=== PATIENT | female | born 1990 | race Caucasian/White ===

== ENCOUNTER → 2020-11-28 15:49 | Outpatient (BNVA) | payer OTHER, SELFPAY | PROVIDERS: Family Provider Nurse Practitioner; Referring Provider Nurse Practitioner; Visit Provider Podiatrist Foot & Ankle Surgery | DX: M79.672 Pain in left foot (principal); M79.671 Pain in right foot | CPT/HCPCS: 73610; 73630 ==

== ENCOUNTER → 2021-01-17 14:13 | Outpatient (BNVA) | payer OTHER, SELFPAY | PROVIDERS: Family Provider Nurse Practitioner; Visit Provider Surgery | DX: Z20.822 Contact with and (suspected) exposure to COVID-19 (principal); K64.8 Other hemorrhoids | CPT/HCPCS: 87635 ==

== ENCOUNTER 2021-01-20 09:44 | Day surgery (SDC) | payer OTHER, SELFPAY ==
[2021-01-20 10:15] LABS: OR HCG Qualitative Urine Negative (Negative)
[2021-01-20 10:17] VITALS: BP 130/81; PULSE 70; RESP 16; TEMP 36.7; O2SAT 97
--- NOTE | 2021-01-20 10:44 | SUR.PREOP ---
PATIENT WAS NOT MADE AWARE OF COLON PREP. DOCTOR EMMA WAS INFORMED AND TALKED WITH PATIENT .PLAN WAS MADE TO CANCEL TODAYS PROCEDURE AND RESCHEDULED FOR LATER DATE.
== END 2021-01-20 10:49 | disposition home or self-care (01) ==
LOC: OR 09:49
PROVIDERS: Anesthesiology; PCP Nurse Practitioner; Visit Provider Surgery
PROC: 0DJD8ZZ Inspection of Lower Intestinal Tract, Via Natural or Artificial Opening Endoscopic (ICD-10-PCS; CPT 45378; 2021-01-20 11:10)
DX: K64.8 Other hemorrhoids (principal); R19.4 Change in bowel habit; Z53.9 Procedure and treatment not carried out, unspecified reason
CPT/HCPCS: 81025; 84703

== ENCOUNTER → 2021-04-25 11:31 | Outpatient (BNVA) | payer OTHER, SELFPAY | PROVIDERS: PCP Nurse Practitioner; Visit Provider Surgery | DX: Z20.822 Contact with and (suspected) exposure to COVID-19 (principal) | CPT/HCPCS: 87635 ==

== ENCOUNTER 2021-04-29 09:54 | Day surgery (SDC) | payer OTHER, SELFPAY ==
[2021-04-28 10:10] VITALS: BMI 34.5
--- NOTE | 2021-04-29 10:09 | ANES.PREANE2 ---
Pre-Anesthetic Assessment Height/Weight: Height 1.83 m Weight 115.666 kg Preop Diagnosis: Bleeding hemorrhoid Operation Date: 04/29/21 11:30 Proposed Procedures p Colonoscopy(Not Applicable) - Fabián Yang MD Was Beta Kaur taken within 24 hours: N/A Was Clonidine taken within 24 hours: N/A Social No alcohol and No tobacco Exam alert, oriented x 3, clear to auscultation bilaterally and regular rate & rhythm Airway Submandibular: within normal limits Cervical ROM: within normal limits Mallampati: Class II Dentition: full History/ROS No significant history except as noted and No significant complaints Pulmonary None reported CV/HEM None reported Hx stones Hepatic None reported GI None reported Metabolic Thyroid Disease Musc/skel None reported Neuropsych None reported Anesthetic Plan ASA status: 2 Anesthesia: Anesthesia Evaluation and MAC Risk of > 500 ml blood loss (7ml/kg in children): No Medications/Allergies Home Medications Medication Instructions Recorded Confirmed Last Taken Type cetirizine 10 mg capsule (All Day 10 mg PO DAILY PRN 11/28/20 04/28/21 01/16/21 History Allergy (cetirizine)) citalopram 40 mg tablet 40 mg PO DAILY 11/28/20 04/28/21 01/19/21 History custom orthotics #1 ea 11/28/20 04/28/21 Unknown Rx fluoride (sodium) 1.1 % dental 1 applic DENTAL DAILY 11/28/20 04/28/21 01/19/21 History cream levothyroxine 25 mcg tablet 25 mcg PO DAILY 11/28/20 04/28/21 01/19/21 History (Synthroid) Allergies Allergy/AdvReac Type Severity Reaction Status Date / Time No Known Allergies Allergy Verified 04/28/21 10:08 [facility] Anesthesia Social History Smoking and tobacco status: never smoked Data Anesthesia Cardiac Studies: No Data to Display
[2021-04-29 10:49] VITALS: BP 160/114; PULSE 84; RESP 18; TEMP 36.4; O2SAT 96
[2021-04-29] MEDS: sodium chloride 0.9% 1,000 ML 30 ML IV (10:52)
--- NOTE | 2021-04-29 12:37 | W.PM.OPSFHP ---
Same Day Surgery H&P Indication for Procedure/HPI DATE OF PROCEDURE: April 29, 2021 CHIEF COMPLAINT/INDICATIONFOR SURGICAL PROCEDURE: Still have blood in stool but hemorrhoids feels better PREOP DIAGNOSIS: Bleeding per rectum PLANNED PROCEDURE: Operation Date: 04/29/21 11:30 Proposed Procedures p Colonoscopy(Not Applicable) - Fabián Yang MD 12/16/2020 This is a pleasant 30 years old female patient obese with a current weight of 264 pounds and a BMI of 35.8. patient gives a history of bleeding hemorrhoid, in the past she said that she had external hemorrhoids with her delivery but they were gone but currently she has been having a new onset of bleeding per rectum for the past 3 weeks or so with bowel movements and being bright in color with no clots.? Patient is referred to me for further evaluation.? Patient denies history of colon cancer and never had a colonoscopy before. Interim history 04/29/2021 Patient feels better with regard to her hemorrhoids but still have bouts of blood in stool and she would like to proceed with the colonoscopy, she mentioned to me today that her dad had a cancerous polyp. ROS All systems have been reviewed negative except as per the above or per problem list Medications/Allergies* Home Medications Medication Instructions Recorded Confirmed Type cetirizine 10 mg capsule (All Day 10 mg PO DAILY PRN 11/28/20 04/29/21 History Allergy (cetirizine)) citalopram 40 mg tablet 40 mg PO DAILY 11/28/20 04/29/21 History fluoride (sodium) 1.1 % dental 1 applic DENTAL DAILY 11/28/20 04/29/21 History cream levothyroxine 25 mcg tablet 25 mcg PO DAILY 11/28/20 04/29/21 History (Synthroid) Allergies/Adverse Reactions Allergy/AdvReac Type Severity Reaction Status Date / Time No Known Allergies Allergy Verified 04/29/21 12:38 Current Medications: Generic Name Dose Route Start Last Admin Trade Name Freq PRN Reason Stop Dose Admin Sodium Chloride 1,000 mls @ 30 mls/hr 04/29/21 10:30 04/29/21 10:52 Sodium Chloride 0.9% IV 04/30/21 10:29 30 mls/hr .Q24H HALLIE Administration Pertinent History/Comorbid Conditions* Social History Smoking and tobacco status: never smoked Pertinent Exam Findings alert, oriented x 3, regular rate & rhythm and procedure specific exam findings (Abdominal examination nontender nondistended soft) Recommendations Surgery/Procedure today (Colonoscopy with possible biopsy) Other Plans: Plan of care; After thorough history and physical examination and reviewing the chart, plan to perform diagnostic colonoscopy. I discussed with the patient in details the risks,benefits,alternatives and indications.The risk of aspiration, bleeding, soft tissue injury, perforation of the colon and other potential concomitant complications were explained to the patient in details,also the potential need for Laproscoy/Laparotomy to repair any related complications including but not limited to colectomy and or Closotomy.The patient understood this well and did agree to proceed. Rationale was carefully and clearly discussed with the patient.Appropriate informed consent have been reviewed and signed All questions have been answered and all concerns have been addressed to patient's satisfaction. Verbal and written Instructions were given to the patient for colonoscopy prep Coding Level of Care Code [employer] General for Bethany Villagomez
[2021-04-29 13:25] VITALS: BP 104/75; PULSE 65; RESP 18; TEMP 36.3; O2SAT 94
[2021-04-29 13:35] VITALS: BP 108/72; PULSE 68; RESP 20; O2SAT 97
[2021-04-29 13:39] LABS: OR HCG Qualitative Urine Negative (Negative)
--- NOTE | 2021-04-29 15:32 | ANE.PACU2 ---
Inpatient post-anesthesia follow up: Airway intact: Yes Vital signs: Temperature 97.3 F Pulse Rate 68 Respiratory Rate 20 Blood Pressure 108/72 Pulse Oximetry 97 Oxygen Delivery Me thod Room Air Oxygen Flow Rate Fraction of Inspir ed Oxygen Hydration adequate: Yes Nausea and vomiting: No Pain level: 2 Mental status: Baseline
== END 2021-04-29 14:08 | disposition home or self-care (01) ==
PROVIDERS: Anesthesiology; PCP Nurse Practitioner; Visit Provider Surgery
PROC: 0DJD8ZZ Inspection of Lower Intestinal Tract, Via Natural or Artificial Opening Endoscopic (ICD-10-PCS; CPT 45378; principal; 2021-04-29 11:30)
DX: K62.5 Hemorrhage of anus and rectum (principal); K64.4 Residual hemorrhoidal skin tags
CPT/HCPCS: 45378; 81025; 84703; J2704; J7030

== ENCOUNTER → 2021-07-02 09:11 | Outpatient (BNVA) | payer OTHER, SELFPAY | PROVIDERS: PCP Nurse Practitioner; Visit Provider Podiatrist Foot & Ankle Surgery | DX: M72.2 Plantar fascial fibromatosis (principal); M21.41 Flat foot [pes planus] (acquired), right foot; M21.42 Flat foot [pes planus] (acquired), left foot | CPT/HCPCS: 99213 ==

== ENCOUNTER 2021-12-16 20:00 | Outpatient (CLI) | payer OTHER, SELFPAY | END 2021-12-16 20:01 | disposition home or self-care (01) | LOC: SLEEP 12-17 07:47 | PROVIDERS: PCP Nurse Practitioner; Visit Provider Nurse Practitioner | DX: R53.82 Chronic fatigue, unspecified (principal); R06.83 Snoring; R09.02 Hypoxemia | CPT/HCPCS: 95810 ==

== ENCOUNTER → 2022-01-08 13:38 | Outpatient (BNVA) | payer OTHER, SELFPAY | PROVIDERS: PCP Nurse Practitioner; Visit Provider Podiatrist Foot & Ankle Surgery | DX: M72.2 Plantar fascial fibromatosis (principal); M21.41 Flat foot [pes planus] (acquired), right foot; M21.42 Flat foot [pes planus] (acquired), left foot | CPT/HCPCS: 20550; J1100; J3301 ==

== ENCOUNTER → 2022-02-11 11:20 | Outpatient (BNVA) | payer OTHER, SELFPAY | PROVIDERS: PCP Nurse Practitioner; Visit Provider Podiatrist Foot & Ankle Surgery | DX: M72.2 Plantar fascial fibromatosis (principal); M25.372 Other instability, left ankle | CPT/HCPCS: 99214 ==

== ENCOUNTER 2022-03-17 06:00 | Outpatient (RCR) | payer OTHER, SELFPAY | END 2022-04-07 23:59 | disposition home or self-care (01) | LOC: SPT 06:00 | PROVIDERS: PCP Nurse Practitioner; Visit Provider Nurse Practitioner | DX: N39.3 Stress incontinence (female) (male) (principal) | CPT/HCPCS: 97110; 97161; 97530 ==

== ENCOUNTER → 2022-03-26 10:37 | Outpatient (BNVA) | payer OTHER, SELFPAY | PROVIDERS: PCP Nurse Practitioner; Visit Provider Podiatrist Foot & Ankle Surgery | DX: M72.2 Plantar fascial fibromatosis (principal) | CPT/HCPCS: 20550 ==

== ENCOUNTER 2022-04-08 06:00 | Outpatient (RCR) | payer OTHER, SELFPAY | END 2022-05-08 23:59 | disposition home or self-care (01) | LOC: SPT 06:00 | PROVIDERS: PCP Nurse Practitioner; Visit Provider Nurse Practitioner | DX: N39.3 Stress incontinence (female) (male) (principal) | CPT/HCPCS: 97110; 97530 ==

== ENCOUNTER → 2022-05-13 10:55 | Outpatient (BNVA) | payer OTHER, SELFPAY | PROVIDERS: PCP Nurse Practitioner; Visit Provider Podiatrist Foot & Ankle Surgery | DX: M72.2 Plantar fascial fibromatosis (principal) | CPT/HCPCS: 20550 ==

== ENCOUNTER → 2022-06-02 08:08 | Outpatient (BNVA) | payer OTHER, SELFPAY | PROVIDERS: PCP Nurse Practitioner; Visit Provider Podiatrist Foot & Ankle Surgery | DX: M72.2 Plantar fascial fibromatosis (principal) | CPT/HCPCS: 99213 ==

== ENCOUNTER 2022-06-22 08:31 | Outpatient (CLI) | payer OTHER, SELFPAY ==
--- NOTE | 2022-06-22 08:45 | MR_ITS ---
WS: [id number] EXAMINATION: MR foot RT wo con* [id number] ORDER DATE: 06/22/2022 9:09 AM COMPARISON: None. HISTORY: rule out rupture of the right plantar fascia CONTRAST: None. TECHNIQUE: Sagittal T1, sagittal STIR, coronal PD, coronal T2, axial T1, axial T2, and axial PD imagi ng with fat saturation technique. FINDINGS: Thickening of the plantar fascia compatible with plantar fasciitis. This is worse along the medial calcaneal facet. This measures approximately 8 mm in maximum dimension. Associated mild edema along the plantar aponeurosis. Diffuse edema involving the lateral plantar fascial insertion with in trasubstance signal abnormality suspicious for high-grade tear. Associated soft tissue edema. Normal bone marrow signal in the calcaneus and talar calcaneal articulation. Normal navicular. Normal medial lateral malleolus. ATF appears intact. Small joint effusion. Small amount of fluid along the retrocalcaneal bursa. Distal Achilles appears intact. Normal peroneal tendons. Tenosynovitis involvin g the posterior tibialis and flexor digitorum longus. Normal extensor compartment tendons. MR/MR foot RT wo con* [id number] IMPRESSION: 1. High-grade tear/rupture involving the lateral band of the plantar fascia at the calcaneal insertion. Associated soft tissue edema with fluid and edema manisha ng the plantar aponeurosis. 2. Diffuse thickening consistent with plantar fasciitis involving the medial p lantar fascial insertion. 3. Plantar calcaneal spur. 4. ATF appears intact. 5. Tenosynovitis involving the posterior tibialis and flexor digitorum longus.
== END 2022-06-22 08:32 | disposition home or self-care (01) ==
PROVIDERS: PCP Nurse Practitioner; Visit Provider Podiatrist Foot & Ankle Surgery
DX: M66.871 Spontaneous rupture of other tendons, right ankle and foot (principal); M72.2 Plantar fascial fibromatosis; M77.31 Calcaneal spur, right foot; M65.871 Other synovitis and tenosynovitis, right ankle and foot
CPT/HCPCS: 73718

== ENCOUNTER → 2022-06-24 09:35 | Outpatient (BNVA) | payer OTHER, SELFPAY | PROVIDERS: PCP Nurse Practitioner; Visit Provider Podiatrist Foot & Ankle Surgery | DX: M72.2 Plantar fascial fibromatosis (principal) | CPT/HCPCS: 99213 ==

== ENCOUNTER 2022-07-28 11:27 | Outpatient (RCR) | payer OTHER, SELFPAY | END 2022-08-07 23:59 | disposition home or self-care (01) | LOC: SPT 11:27 | PROVIDERS: PCP Nurse Practitioner; Visit Provider Podiatrist Foot & Ankle Surgery | DX: M72.2 Plantar fascial fibromatosis (principal) | CPT/HCPCS: 97110; 97161 ==

== ENCOUNTER → 2022-08-05 08:49 | Outpatient (BNVA) | payer OTHER, SELFPAY | PROVIDERS: PCP Nurse Practitioner; Visit Provider Podiatrist Foot & Ankle Surgery | DX: M72.2 Plantar fascial fibromatosis (principal) | CPT/HCPCS: 99213 ==

== ENCOUNTER 2022-08-08 06:00 | Outpatient (RCR) | payer OTHER, SELFPAY | END 2022-09-07 23:59 | disposition home or self-care (01) | LOC: SPT 06:00 | PROVIDERS: PCP Nurse Practitioner; Visit Provider Podiatrist Foot & Ankle Surgery | DX: M72.2 Plantar fascial fibromatosis (principal) | CPT/HCPCS: 97110; 97140; 97530 ==

== ENCOUNTER 2022-09-08 06:00 | Outpatient (RCR) | payer OTHER, SELFPAY | END 2022-10-08 23:59 | disposition home or self-care (01) | LOC: SPT 06:00 | PROVIDERS: PCP Nurse Practitioner; Visit Provider Podiatrist Foot & Ankle Surgery | DX: M72.2 Plantar fascial fibromatosis (principal) | CPT/HCPCS: 97110; 97530 ==

== ENCOUNTER → 2022-09-21 14:04 | Outpatient (BNVA) | payer OTHER, SELFPAY | PROVIDERS: PCP Nurse Practitioner; Visit Provider Podiatrist Foot & Ankle Surgery | DX: M72.2 Plantar fascial fibromatosis (principal) | CPT/HCPCS: 99213 ==

== ENCOUNTER 2022-10-09 06:00 | Outpatient (RCR) | payer OTHER, SELFPAY | END 2022-11-07 23:59 | disposition home or self-care (01) | LOC: SPT 06:00 | PROVIDERS: PCP Nurse Practitioner; Visit Provider Podiatrist Foot & Ankle Surgery | DX: M72.2 Plantar fascial fibromatosis (principal) | CPT/HCPCS: 97110; 97530 ==

== ENCOUNTER 2022-11-08 06:00 | Outpatient (RCR) | payer OTHER, SELFPAY | END 2022-12-08 23:59 | disposition home or self-care (01) | LOC: SPT 06:00 | PROVIDERS: PCP Nurse Practitioner; Visit Provider Podiatrist Foot & Ankle Surgery | DX: M72.2 Plantar fascial fibromatosis (principal) | CPT/HCPCS: 97110 ==

== ENCOUNTER → 2022-11-16 13:36 | Outpatient (BNVA) | payer OTHER, SELFPAY | PROVIDERS: PCP Nurse Practitioner; Visit Provider Podiatrist Foot & Ankle Surgery | DX: M72.2 Plantar fascial fibromatosis | CPT/HCPCS: 99213 ==

== ENCOUNTER 2023-01-08 06:00 | Outpatient (RCR) | payer OTHER, SELFPAY | END 2023-02-07 23:59 | disposition home or self-care (01) | LOC: SPT 06:00 | PROVIDERS: PCP Nurse Practitioner; Visit Provider Podiatrist Foot & Ankle Surgery | DX: M72.2 Plantar fascial fibromatosis (principal) | CPT/HCPCS: 97110 ==

== ENCOUNTER → 2023-01-11 13:35 | Outpatient (BNVA) | payer OTHER, SELFPAY | PROVIDERS: PCP Nurse Practitioner; Visit Provider Podiatrist Foot & Ankle Surgery | DX: M72.2 Plantar fascial fibromatosis (principal) | CPT/HCPCS: 99213 ==

== ENCOUNTER 2023-02-08 06:00 | Outpatient (RCR) | payer OTHER, SELFPAY | END 2023-03-10 23:59 | disposition home or self-care (01) | LOC: SPT 06:00 | PROVIDERS: PCP Nurse Practitioner; Visit Provider Podiatrist Foot & Ankle Surgery | DX: M72.2 Plantar fascial fibromatosis (principal) | CPT/HCPCS: 97035; 97530 ==

== ENCOUNTER → 2023-02-23 14:22 | Outpatient (BNVA) | payer OTHER, SELFPAY | PROVIDERS: PCP Nurse Practitioner; Visit Provider Podiatrist Foot & Ankle Surgery | DX: M72.2 Plantar fascial fibromatosis (principal) | CPT/HCPCS: 99213 ==

== ENCOUNTER 2023-03-11 06:00 | Outpatient (RCR) | payer OTHER, SELFPAY | END 2023-03-22 23:59 | disposition home or self-care (01) | LOC: SPT 06:00 | PROVIDERS: PCP Nurse Practitioner; Visit Provider Podiatrist Foot & Ankle Surgery | DX: M72.2 Plantar fascial fibromatosis (principal) | CPT/HCPCS: 97110 ==

== ENCOUNTER → 2024-07-24 11:00 | Outpatient (BNVA) | payer OTHER, SELFPAY | PROVIDERS: PCP Nurse Practitioner; Referring Provider Nurse Practitioner; Visit Provider Nurse Practitioner Family | DX: M54.9 Dorsalgia, unspecified (principal); G89.29 Other chronic pain; M54.16 Radiculopathy, lumbar region | CPT/HCPCS: 99214 ==

== ENCOUNTER 2024-08-08 05:00 | Outpatient (RCR) | payer OTHER, SELFPAY | END 2024-09-07 23:59 | disposition home or self-care (01) | LOC: SPT 05:00 | PROVIDERS: Visit Provider Nurse Practitioner | DX: M54.50 Low back pain, unspecified (principal) | CPT/HCPCS: 97110; 97161 ==

== ENCOUNTER 2024-09-08 05:00 | Outpatient (RCR) | payer OTHER, SELFPAY | END 2024-10-08 23:59 | disposition home or self-care (01) | LOC: SPT 05:00 | PROVIDERS: Visit Provider Nurse Practitioner | DX: M54.50 Low back pain, unspecified (principal) | CPT/HCPCS: 97110 ==

== ENCOUNTER 2024-10-09 05:00 | Outpatient (RCR) | payer OTHER, SELFPAY | END 2024-11-07 23:59 | disposition home or self-care (01) | LOC: SPT 05:00 | PROVIDERS: Visit Provider Nurse Practitioner | DX: M54.50 Low back pain, unspecified (principal) | CPT/HCPCS: 97110 ==

== ENCOUNTER 2024-11-08 06:30 | Outpatient (RCR) | payer OTHER, SELFPAY | END 2024-11-21 08:46 | disposition home or self-care (01) | LOC: SPT 06:30 | PROVIDERS: Visit Provider Nurse Practitioner | DX: M54.50 Low back pain, unspecified (principal) | CPT/HCPCS: 97110 ==